=== PATIENT | male | born 1985 | race Caucasian/White ===

== ENCOUNTER 2017-02-18 11:33 | Emergency (ER) | payer SELFPAY ==
[2017-02-18 11:38] VITALS: BP 182/99
[2017-02-18] MEDS ORDERED: HYDROCODONE/ACETAMINOPHEN 5-325 MG TABLET PO ONE (12:02)
[2017-02-18] MEDS ORDERED: MUPIROCIN 2% OINTMENT 22 GM TP ONE (12:05)
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
== END 2017-02-18 12:15 | disposition home or self-care (01) ==
LOC: ER 11:33
DX: S09.90XA Unspecified injury of head, initial encounter (principal); S00.81XA Abrasion of other part of head, initial encounter; W22.8XXA Striking against or struck by other objects, initial encounter; Y93.18 Activity, surfing, windsurfing and boogie boarding
CPT/HCPCS: 99283; J3490